=== PATIENT | female | born 1940 | race Caucasian/White ===

== ENCOUNTER 2019-06-27 15:59 | Emergency (ER) | payer MEDICARE, MEDICAID ==
--- OUTSIDE RECORDS SUMMARY | 2019-06-27 16:10 | XMS REPORT | Continuity of Care Document ---
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 Problems Description No Information Available Social History Type Date Description Comments Sex Unknown ETOH Use Denies alcohol use Tobacco Use Start: Unknown Patient has never smoked Recreational Drug Use Denies Drug Use Exercise Type/Frequency Does not exercise Allergies, Adverse Reactions, Alerts Description No Known Drug Allergies Medications Active Medications SIG Qnty Indications Ordering Date Provider Metoprolol Tartrate 1 tab by mouth Unknown 50mg Tablets once daily Lantus Solostar 134 units at hs Unknown 100Unit/ML Solution Pen-Inject Glyburide 1 tab by mouth Unknown 5mg Tablets once daily Lyrica 1 tab by mouth Unknown 50mg Capsules three times daily Simvastatin take 1 tablet Unknown 10mg Tablets by mouth at bedtime Aspir-81 1 by mouth Unknown 81mg Tablets DR every day Enalapril Maleate 1 by mouth Unknown 20mg Tablets twice daily Hydrochlorothiazide 2 tabs by mouth Unknown 25mg Tablets every day Vitamin D3 1 by mouth Unknown 2000Unit Capsules every day Humulin R as directed Liliana Tovar, 100Unit/ML Solution Ibuprofen one tablet by Unknown 600mg Tablets mouth q6 as needed pain Immunizations Description No Information Available Vital Signs Date Vital Result Comment 06/13/2019 10:41am Height 68 inches 5'8" Weight 194.00 lb Heart Rate 61 /min BP Systolic Sitting 162 mmHg BP Diastolic Sitting 82 mmHg Respiratory Rate 18 /min Body Temperature 97.7 F Pain Level 10 O2 % BldC Oximetry 97 % BMI (Body Mass Index) 29.5 kg/m2 09/18/2016 9:30am Height 68 inches 5'8" Weight 204.00 lb per patient Heart Rate 64 /min BP Systolic Sitting 124 mmHg BP Diastolic Sitting 72 mmHg O2 % BldC Oximetry 98 % BMI (Body Mass Index) 31.0 kg/m2 Results Description No Information Available Procedures Description No Information Available Medical Devices Description No Information Available Encounters Description No Information Available Assessments Date Code Description Provider 06/13/2019 S92.354A Nondisplaced fracture of fifth metatarsal Beto Martin MD bone, right foot, initial encounter for closed fracture 06/13/2019 S93.401A Sprain of unspecified ligament of right ankle, Beto Martin MD initial encounter Plan of Treatment 06/13/2019 - Beto Martin, MDS92.354A Nondisplaced fracture of fifth metatarsal bone, right foot, initial encounter for closed fractureComments: walking bootFollow up:Follow up: Follow up: Dr. Holcomb- patient's kiln remover as [id number] Sprain of unspecified ligament of right ankle, initial encounter Functional Status Description No Information Available Mental Status Description No Information Available Referrals Description No Information Available
[2019-06-27 16:19] VITALS: BP 129/74
--- NOTE | 2019-06-27 16:45 | UC ---
Skin Complaint HPI - HPI Summary HPI Summary: 78-year-old woman comes in with chief complaint of redness to her right lateral lower leg. Patient's been treated for a right fifth metatarsal fracture by Dr. Holcomb in podiatry. On exam today noticed redness and heat just above the ankle on the right side. No fevers no chills patient feels well otherwise. - History of Current Complaint Chief Complaint: UCLowerExtremity Time Seen by Provider: 06/27/19 16:30 Stated Complaint: RIGHT FOOT COMPLAINT Pain Intensity: 10 - Allergy/Home Medications Allergies/Adverse Reactions: Allergies Allergy/AdvReac Type Severity Reaction Status Date / Time No Known Allergies Allergy Verified 06/27/19 16:19 Home Medications: Home Medications Cholecalciferol (Vitamin D3) [Vitamin D3] 2,000 unit PO DAILY 06/27/19 [History Confirmed 06/27/19] Hydrochlorothiazide TAB* [Hydrodiuril TAB*] 25 mg PO DAILY 06/27/19 [History Confirmed 06/27/19] PMH/Surg Hx/FS Hx/Imm Hx Previously Healthy: Yes Endocrine History: Diabetes, Dyslipidemia Cardiovascular History: Hypertension - Surgical History Surgical History: None - Family History Known Family History: Positive: Non-Contributory - Social History Alcohol Use: None Substance Use Type: None Smoking Status (MU): Never Smoked Tobacco Review of Systems All Other Systems Reviewed And Are Negative: Yes Constitutional: Positive: Negative Skin: Positive: Other - SEE HPI Eyes: Positive: Negative ENT: Positive: Negative Respiratory: Positive: Negative Cardiovascular: Positive: Negative Gastrointestinal: Positive: Negative Motor: Positive: Negative Neurovascular: Positive: Negative Musculoskeletal: Positive: Other: - SEE HPI Neurological: Positive: Negative Psychological: Positive: Negative Is Patient Immunocompromised?: No Physical Exam Triage Information Reviewed: Yes Appearance: Well-Appearing, No Pain Distress, Well-Nourished Vital Signs: Initial Vital Signs Temp 98.1 F 06/27/19 16:11 Pulse 63 06/27/19 16:11 Resp 18 06/27/19 16:11 BP 129/74 06/27/19 16:11 Pulse Ox 97 06/27/19 16:11 Vital Signs Reviewed: Yes Eye Exam: Normal Eyes: Positive: Conjunctiva Clear Neck: Positive: Supple Respiratory: Positive: No respiratory distress Musculoskeletal: Positive: Strength Intact Neurological: Positive: Alert Psychological: Positive: Normal Response To Family, Age Appropriate Behavior Skin: Positive: Other - 4 cm diameter area of erythema on the right lower lateral leg just above the ankle. It's mildly warm to touch there is no streaking. No obvious skin break. The calf is nontender to palpation and not swollen. Course/Dx - Course Course Of Treatment: Go to treat for cellulitis in the right lower leg with Keflex patient is to get reevaluated sooner if worse or not improving. No evidence of DVT today on examination. - Diagnoses Provider Diagnosis: Cellulitis of right leg Discharge ED - Sign-Out/Discharge Documenting (check all that apply): Patient Departure All imaging exams completed and their final reports reviewed: No Studies - Discharge Plan Condition: Stable Disposition: HOME Prescriptions: Cephalexin CAP* [Keflex CAP*] 500 mg PO QID #40 cap Patient Education Materials: Cellulitis (ED) Referrals: Li Faust PA [Primary Care Provider] - Ankit Holcomb DPM [Doctor of Podiatric Medicine] - Additional Instructions: Follow-up with your doctor within the week to ensure resolution of your cellulitis. Go to the emergency department if the cellulitis worsens with spread of infection fevers she feel ill or any other worsening of symptoms. - Billing Disposition and Condition Condition: STABLE Disposition: Home
== END 2019-06-27 16:51 | disposition home or self-care (01) ==
LOC: UCCORT 15:59
DX: L03.115 Cellulitis of right lower limb (principal); E11.9 Type 2 diabetes mellitus without complications; I10 Essential (primary) hypertension; S92.354A Nondisplaced fracture of fifth metatarsal bone, right foot, initial encounter for closed fracture; X58.XXXA Exposure to other specified factors, initial encounter; Y92.9 Unspecified place or not applicable
CPT/HCPCS: 99212; G0463